=== PATIENT | female | born 1975 | race Two or more races ===

== ENCOUNTER 2020-10-04 23:08 | Emergency (ER) | payer OTHER ==
[~2020-10-04] VITALS: Ht 160 cm; Wt 86.2 kg
[2020-10-04] MEDS ORDERED: FIORICET (23:52)
[2020-10-05] MEDS ORDERED: KETO10TA2 PO (01:53)
[2020-10-05] MEDS ORDERED: BUTALBIT-ACETA1 EACH PO (01:53)
== END 2020-10-05 02:03 | disposition home or self-care (01) ==
LOC: ER 23:08
DX: G43.809 Other migraine, not intractable, without status migrainosus (principal)

== ENCOUNTER 2023-01-14 17:58 | Emergency (ER) | payer OTHER ==
[~2023-01-14] VITALS: Ht 160 cm; Wt 86.2 kg
[~2023-01-14 17:58] MED LIST: BUTALBIT-ACETA1 EACH PO; FIORICET; KETO10TA2 PO
[2023-01-14] MEDS ORDERED: AMLODIPINE-OLM1 EAC3 PO (18:44)
[2023-01-14] MEDS ORDERED: CHLORTHALIDONE25 MG PO (18:45)
[2023-01-14] MEDS ORDERED: BACTRIM DS TAB1 EACH PO (21:37)
== END 2023-01-14 22:27 | disposition home or self-care (01) ==
LOC: ER 17:58
DX: N39.0 Urinary tract infection, site not specified (principal); R10.9 Unspecified abdominal pain; Z87.442 Personal history of urinary calculi; I10 Essential (primary) hypertension